=== PATIENT | female | born 1950 | race Caucasian/White ===

== ENCOUNTER 2020-02-02 14:06 | Emergency (ER) | payer MEDICARE ==
[~2020-02-02] VITALS: Ht 157.5 cm; Wt 68.0 kg
[2020-02-02] MEDS ORDERED: MORPHINE SULFATE 4 MG/ML CPJ (NOT FOR IM USE) IV STA (14:30)
[2020-02-02] MEDS ORDERED: SODIUM CHLORIDE 0.9% 1,000 ML IV ONE (14:30)
[2020-02-02] MEDS ORDERED: ONDANSETRON HCL 4MG/2ML INJ IV STA (14:30)
[2020-02-02 15:44] LABS: BASOPHILS % 0.5 % (0.0-2.0); EOSINOPHILS % 2.3 % (0.0-5.0); HEMATOCRIT. 34.9 % (36.0-48.0); LYMPHOCYTES % 22.8 % (20.0-50.0); MEAN CORPUSCULAR HEMOGLOBIN 30.9 pg (28.0-32.0); MEAN CORPUSCULAR VOLUME 90.1 fL (81.0-99.0); MEAN PLATELET VOLUME 10.1 fl (7.4-10.4); MONOCYTES % 12.2 % (2.0-8.0); NEUTROPHILS % 62.2 % (40.0-76.0); PLATELET 178 x1000/uL (130-400); RED BLOOD CELL COUNT 3.87 mill/uL (4.2-5.4); RED CELL DISTRIBUTION WIDTH 13.5 % (11.6-14.6)
[2020-02-02 15:51] LABS: CHLORIDE 104 mEq/L (98-107)
[2020-02-02 15:55] LABS: INR 1.1; PARTIAL THROMBOPLASTIN TIME 30.5 sec (23.4-31.0); PROTHROMBIN TIME 11.3 sec (9.6-11.0)
[2020-02-02] MEDS ORDERED: IOHEXOL-300 100 ML BOTTLE ONE (17:05)
[2020-02-02 19:26] VITALS: BP 151/85
== END 2020-02-02 20:21 | disposition home or self-care (01) ==
LOC: ER 14:33
DX: S29.8XXA Other specified injuries of thorax, initial encounter (principal); S40.022A Contusion of left upper arm, initial encounter; M79.642 Pain in left hand; R90.82 White matter disease, unspecified; V49.49XA Driver injured in collision with other motor vehicles in traffic accident, initial encounter; I10 Essential (primary) hypertension; Y93.89 Activity, other specified; Y92.488 Other paved roadways as the place of occurrence of the external cause
CPT/HCPCS: 36415; 70450; 70486; 71045; 71260; 72125; 73060; 73130; 74177; 80053; 84484; 85025; 85610; 85730; 93005; 96374; 96375; 99285; J2270; J2405; J7030; Q9967